=== PATIENT | female | born 1990 | race Caucasian/White ===

== ENCOUNTER 2020-01-20 07:55 | Outpatient (RCR) | payer OTHER, SELFPAY ==
--- NOTE | 2020-01-20 08:50 | PTOPEVAL ---
Thank you for referring Daja Grace to [facility].? The patient is scheduled to be seen for therapy? ____x/week for ___ weeks. Please review, sign, date and return this plan of care EZEKIEL. I agree with and certify that the following plan of care is medically necessary. Referring Physician Date Admitting Provider: Attending Provider: Dora Tobar, BROOMCORN SCRAPER Referring Provider: *PT Outpatient Evaluation Start: 01/20/20 07:58 Freq: Status: Active Protocol: Document 01/20/20 08:05 [facility] (Rec: 01/20/20 08:50 [facility] [email or web address]) Therapy Assessment Status Assessment Status Assessment Status Evaluation Evaluation Information Problem Diagnosis L ACL tear Onset 01/08/20 Additional Evaluation Detail LEFS = 55% functional decline Subjective Information patient reports she tore her Query Text:As Reported By Patient/ ACL while dancing at a wedding Family . she reports she went to step down on the L foot and her L knee continued to move out and popped. she reports she was on crutches initially, but has since started walking on it more. she reports she will have surgery on the L knee, but reports she needs to improve her mobility/strength prior to surgery. no set date for surgery yet. she reports increased pain with walking, standing, bending, and straightening the knee. 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 she reports she is currently off work, but going back this coming friday. she reports prior to injury, no issues with the knee. Pain Assessment Timing of Pain Assessment Timing of Pain Assessment Assessment Pain Scale Pain Scale Used Numeric (1 - 10) Self Report Pain Assessment Left Knee(s) Reported Pain Level 7 Pain Frequency Acute,Continuous Lowest Pain Intensity 5 Greatest Pain Intensity 10 Pain Score Pain Score 7: Self Report Additional Pain Score Comments tramadol for pain at night also anti-inflamatory Interventions Used Interventions Used By Clinicians Compression Pump,Education,
--- NOTE | 2020-01-28 08:14 | PTOPEVAL ---
Thank you for referring Daja Grace to [facility].? The patient is scheduled to be seen for therapy? ____x/week for ___ weeks. Please review, sign, date and return this plan of care EZEKIEL. I agree with and certify that the following plan of care is medically necessary. Referring Physician Date Admitting Provider: Attending Provider: Dora Tobar, RESTAURANT HOST Referring Provider: *PT Outpatient Evaluation Start: 01/20/20 07:58 Freq: Status: Active Protocol: Document 01/28/20 07:39 [facility] (Rec: 01/28/20 08:04 [facility] [email or web address]) Therapy Assessment Status Assessment Status Assessment Status Re-evaluation Evaluation Information Problem Diagnosis L ACL tear Subjective Information patient reports she feels Query Text:As Reported By Patient/ good this date. she reports Family she is much better than her initial visit. she reports she is scheduled to see her surgeon on friday of this upcoming week to schedule surgery. Pain Assessment Timing of Pain Assessment Timing of Pain Assessment Assessment Pain Scale Pain Scale Used Numeric (1 - 10) Self Report Pain Assessment Left Knee(s) Reported Pain Level 4 Lowest Pain Intensity 3 Greatest Pain Intensity 5 Pain Score Pain Score 4: Self Report Interventions Used Interventions Used By Clinicians Activity or ADL's,Education, Exercise Lower Extremity Range of Motion Knee Range of Motion Left Knee Flexion Range of Motion - Active 135 Knee Extension Range of Motion - Active 0 Query Text: Lower Extremity Muscle Strength Testing Hip Strength Left Hip Flexion Strength 4+ Good + Hip Strength Comments no extension lag of the knee with SLR Knee Strength Left Knee Flexion Strength 5 Normal Knee Extension Strength 4 Good Muscle Length Testing Muscle Length Testing Left Hamstring Length 10 Query Text:(90 - 90 Position) Right Hamstring Length 0 Query Text:(90 - 90 Position) Gait Assessment Gait Assessment Additional Ambulation Comments patient ambulates with normal gait cycle without an AD. she ambulates with normal speed/ billy. Stair Climbing Assessment Stair Climbing Assessment Stair Climbing Comments patient ambulates up and down 12 steps with 1 hand rail with reciprocal gait mechanics. General Exercise General Exercises Exercise Description -piper
== END 2020-01-28 11:04 | disposition home or self-care (01) ==
LOC: CHSPT 07:55
PROVIDERS: Visit Provider Nurse Practitioner Family
DX: S83.512A Sprain of anterior cruciate ligament of left knee, initial encounter (principal)
CPT/HCPCS: 97016; 97110; 97161; 97530

== ENCOUNTER 2020-03-21 10:54 | Outpatient (RCR) | payer BC, OTHER, MEDICAID, SELFPAY ==
--- NOTE | 2020-03-21 12:27 | PTOPEVAL ---
Thank you for referring Daja Grace to [facility].? The patient is scheduled to be seen for therapy? __3__x/week for 12 visits. Please review, sign, date and return this plan of care EZEKIEL. I agree with and certify that the following plan of care is medically necessary. Referring Physician Date Admitting Provider: Attending Provider: Dora Tobar, FIRE TOWER KEEPER Referring Provider: *PT Outpatient Evaluation Start: 03/21/20 11:02 Freq: Status: Active Protocol: Document 03/21/20 11:02 [facility] (Rec: 03/21/20 12:01 [email or web address] [email or web address]) Therapy Assessment Status Assessment Status Assessment Status Evaluation Evaluation Information Problem Diagnosis left ACL reconstruction Onset 03/01/20 Subjective Information Pt. reports she underwent ACL Query Text:As Reported By Patient/ recontstruction on 03/01/20. Family She has been performing HEP on her own. Pt. reports she is currently wearing a brace and states that she was told to continue to utilize her immobilizer brace with walking . She states that pain is currently 2/10. 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 She states that her goal for therapy is to be able to walk normal. Prior Level of Function Activity Level (Last 3 Months) Hand Dominance Right Activity of Daily Living Ability Independent Indoor/Home Mobility Independent Community Mobility Independent Stairs Ability Independent Functional Cognition (Planning, Shopping Independent , Taking Medications) Cooking Yes Cleaning Yes Laundry Yes Shopping Yes Driving Yes Pain Assessment Pain Scale Pain Scale Used Numeric (1 - 10) Self Report Pain Assessment Left Knee(s) Reported Pain Level 2 Pain Frequency Continuous Lowest Pain Intensity 2 Greatest Pain Intensity 7 Pain Score Pain Score 2: Self Report Interventions Used Interventions Used By Clinicians Exercise Lower Extremity Range of Motion General Lower Extremity Range of Motion Gross Lower Extremity Range of Motion left knee AROM 3-50 degrees Comments left knee AAROM 3-108 Lower Extremity Muscle Strength Testing General Lowe
--- NOTE | 2020-04-25 14:55 | PTOPEVAL ---
Thank you for referring Daja Grace to [facility].? The patient is scheduled to be seen for therapy? __1__x/week for 6 visits. Please review, sign, date and return this plan of care EZEKIEL. I agree with and certify that the following plan of care is medically necessary. Referring Physician Date Admitting Provider: Attending Provider: Dora Tobar, VESSEL ENGINEER Referring Provider: *PT Outpatient Evaluation Start: 03/21/20 11:02 Freq: Status: Active Protocol: Document 04/25/20 14:09 [facility] (Rec: 04/25/20 14:55 [email or web address] [email or web address]) Therapy Assessment Status Assessment Status Assessment Status Progress Evaluation Information Problem Subjective Information Pt. reports that she is doing Query Text:As Reported By Patient/ better. She reports that she Family has not returned to work, but is hopeful to be able to return next week. She reports that she has not returned to running activities, and is hopeful to soon. She states that she will get occassional twinge of pain. She reports that her goal remains to return to running/jogging. Pain Assessment Pain Scale Pain Scale Used Numeric (1 - 10) Self Report Pain Assessment Lower Back Reported Pain Level 3 Left Knee(s) Reported Pain Level 2 Pain Score Pain Score 3,2: Self Report Interventions Used Interventions Used By Clinicians Activity or ADL's,Exercise Lower Extremity Range of Motion General Lower Extremity Range of Motion Gross Lower Extremity Range of Motion Pt. demosntrate 0-130 degrees Comments left knee AROM Lower Extremity Muscle Strength Testing General Lower Extremity Strength Gross Lower Extremity Strength -right hip flexion 5/5 -left hip flexion 4+/5 -right knee flexion 5/5 -left knee flexion 5/5 -right knee extension 5/5 -left knee exetnsion 4/5 -bilateral ankle dorsiflexion 5/5 Muscle Length Testing Muscle Length Testing Left Hamstring Length 20 Query Text:(90 - 90 Position) Right Hamstring Length 15 Query Text:(90 - 90 Position) Gait Assessment Gait Assessment Additional Ambulation Comments Pt. ambulates over level surface with equal right and left stance time. She demonstrates slight pelvic shift durin
--- NOTE | 2020-07-04 13:58 | PCPTNOTE ---
07/04/20 - patient has not been to therapy in over a month. as of this date, all progress towards goals will be taken from her most recent evaluation/note and patient will be dc'd from skilled PT services. ANGELIQUE
== END 2020-05-26 23:59 | disposition home or self-care (01) ==
LOC: CHSPT 10:54
PROVIDERS: Visit Provider Nurse Practitioner Family
DX: S83.512D Sprain of anterior cruciate ligament of left knee, subsequent encounter (principal); Z48.89 Encounter for other specified surgical aftercare
CPT/HCPCS: 97014; 97016; 97110; 97161; 97530; G0283